=== PATIENT | male | born 1965 | race Caucasian/White ===

== ENCOUNTER → 2017-08-08 | Outpatient (CLI) | payer BC ==
[2017-08-08 11:39] LABS: ALT 77 U/L (21-72); AST 40 U/L (17-59); Alkaline Phosphatase 65 U/L (38-126); Anion Gap 10 mmol/L; Blood Urea Nitrogen 14 mg/dL (9-20); Calcium 9.1 mg/dL (8.4-10.2); Carbon Dioxide 21 mmol/L (22-30); Chloride 109 mmol/L (98-107); Cholesterol 190 mg/dL (<200); Glucose 155 mg/dL (74-99); HDL Cholesterol 36 mg/dL (40-60); Non-African American GFR(MDRD) >60 (>60 ml/min/1.73 sqM); Potassium 4.2 mmol/L (3.5-5.1); Sodium 140 mmol/L (137-145); Total Bilirubin 0.3 mg/dL (0.2-1.3); Total Protein 6.6 g/dL (6.3-8.2)
[2017-08-08 11:53] LABS: Basophils # (A) 0.1 k/uL (0-0.2); Basophils % (A) 1 %; CH 32.9; CHCM 35.3; Eosinophils # (A) 0.2 k/uL (0-0.7); Eosinophils % (A) 4 %; HCT 50.1 % (39.0-53.0); HDW 2.87; HGB 16.9 gm/dL (13.0-17.5); Luc # (Auto) 0.08; Luc % (Auto) 1; Lymphocytes # (A) 1.4 k/uL (1.0-4.8); Lymphocytes % (A) 22 %; MCH 31.6 pg (25.0-35.0); MCHC 33.7 g/dL (31.0-37.0); MCV 93.6 fL (80.0-100.0); Mean Platelet Volume 9.1; Monocytes # (A) 0.5 k/uL (0-1.0); Monocytes % (A) 8 %; Neutrophils % (A) 64 %; RBC 5.35 m/uL (4.30-5.90); RDW 14.7 % (11.5-15.5); WBC 6.2 k/uL (3.8-10.6)
== END | disposition home or self-care (01) ==
LOC: LABWHC1 10:55
PROVIDERS: ATTEND Family Medicine
DX: E11.9 Type 2 diabetes mellitus without complications (principal); E78.5 Hyperlipidemia, unspecified; E55.9 Vitamin D deficiency, unspecified
CPT/HCPCS: 36415; 80053; 80061; 82306; 83036; 84443; 85025

== ENCOUNTER → 2017-11-28 | Outpatient (CLI) | payer BC ==
--- NOTE | 2017-11-28 14:38 | XR ---
Left shoulder HISTORY: Left shoulder pain 3 views of the left shoulder No comparisons Distal acromion is somewhat downturned. Alignment, bone mineralization and joint spaces are maintaine d. No fracture or dislocation. Left lung apex as visualized is normal. IMPRESSION: No significant abnormalities evident. Shoulder MRI may be of benefit.
== END | disposition home or self-care (01) ==
LOC: RADXRMAIN 10:09
PROVIDERS: ATTEND Family Medicine
DX: M25.512 Pain in left shoulder (principal)

== ENCOUNTER → 2019-01-06 | Outpatient (CLI) | payer BC ==
--- NOTE | 2019-01-06 15:22 | CT ---
EXAMINATION TYPE: CT brain wo con DATE OF EXAM: 01/06/2019 COMPARISON: None HISTORY: c/o dizziness, memory loss, numbness, slurred speech, headaches. CT DLP: 1144 mGycm Automated exposure control for dose reduction was used. FINDINGS: Mild generalized degenerative change of the frontal lobe component. No midline shift or mass effect. No acute hemorrhage. Calvarium intact. Changes of chronic sinusitis noted. Craniocervical junction maintained. IMPRESSION: NO ACUTE PROCESS. IF THERE IS CONCERN FOR ACUTE OR RECENT ISCHEMIA CORRELATE WITH MRI.
--- NOTE | 2019-01-06 15:45 | US ---
EXAMINATION TYPE: US carotid duplex BILAT DATE OF EXAM: 01/06/2019 COMPARISON: NONE CLINICAL HISTORY: G45.9 TIA. syncope x 2 weeks ago, numbness of lips, slurred speech, hx of HTN but s tates BP has been back to normal EXAM MEASUREMENTS: RIGHT: Peak Systolic Velocity (PSV) cm/sec ----- Right CCA: 70.3 ----- Right ICA: 106.2 ----- Right ECA: 87.5 ICA/CCA ratio: 1.5 RIGHT: End Diastole cm/sec ----- Right CCA: 25.8 ----- Right ICA: 50.1 ----- Right ECA: 18.2 LEFT: Peak Systolic Velocity (PSV) cm/sec ----- Left CCA: 86.4 ----- Left ICA: 104.3 ----- Left ECA: 63.3 ICA/CCA ratio: 1.2 LEFT: End Diastole cm/sec ----- Left CCA: 27.0 ----- Left ICA: 33.1 ----- Left ECA: 15.4 VERTEBRALS (direction of flow): Right Vertebral: Antegrade Left Vertebral: Antegrade Rhythm: Normal No elevated velocities, significant stenosis or plaque. Slight bilateral wall thickening. IMPRESSION: 1. Intimal thickening with no significant hemodynamic stenosis. Criteria for Assigning % of Stenosis / Diameter reduction (Estimation based on the indirect measurements of the internal carotid artery velocities (ICA PSV). 1. Normal (no stenosis)=ICA PSV < 125 cm/s: ratio < 2.0: ICA EDV<40 cm/s. 2. Less than 50% stenosis=ICA PSV < 125 cm/s: ratio < 2.0: ICA EDV<40 cm/s. 3. 50 to 69% stenosis=ICA PSV of 125 to 230 cm/s: ration 2.0 ? 4.0: ICA EDV 40-100 cm/s. 4. Greater than 70% stenosis to near occlusion= ICA PSV > 230 cm/s: ratio > 4.0: ICA EDV > 100 cm/s. 5. Near occlusion= ICA PSV velocities may be low or undetectable: variable ratio and ICA EDV. 6. Total occlusion=unable to detect flow.
--- NOTE | 2019-01-07 12:45 | ECHOF ---
Referral Reason:G45.9 TIA MEASUREMENTS -------- HEIGHT: 172.7 cm WEIGHT: 91.6 kg BP: RVIDd: 2.8 cm (< 3.3) IVSd: 1.2 cm (0.6 - 1.1) LVIDd: 4.4 cm (3.9 - 5.3) LVPWd: 1.3 cm (0.6 - 1.1) IVSs: 1.6 cm LVIDs: 2.6 cm LVPWs: 1.6 cm LAESV Index (A-L): 13.20 ml/m Ao Diam: 3.1 cm (2.0 - 3.7) AV Cusp: 1.7 cm (1.5 - 2.6) LA Diam: 2.5 cm (2.7 - 3.8) MV EXCURSION: 22.213 mm (> 18.000) MV EF SLOPE: 148 mm/s (70 - 150) MV E Shubham: 0.95 m/s MV DecT: 185 ms MV A Shubham: 0.77 m/s MV E/A Ratio: 1.23 RAP: 5.00 mmHg RVSP: 24.65 mmHg FINDINGS -------- Sinus rhythm. This was a technically adequate study. The left ventricular size is normal. There is mild concentric left ventricular hypertrophy. Overa ll left ventricular systolic function is normal with, an EF between 55 - 60 %. The right ventricle is normal in size. Normal LA size by volume 22+/-6 ml/m2. The right atrial size is normal. The aortic valve is trileaflet, and appears structurally normal. No aortic stenosis or regurgitation. The mitral valve is normal. There is trace to mild mitral regurgitation. Trace tricuspid regurgitation present. Right ventricular systolic pressure is normal at < 35 mmHg. The right ventricular systolic pressure, as measured by Doppler, is 24.65mmHg. The pulmonic valve was not well visualized. There is no pulmonic regurgitation present. The aortic root size is normal. Normal inferior vena cava with normal inspiratory collapse consistent with estimated right atrial pre ssure of 5 mmHg. There is no pericardial effusion. CONCLUSIONS -------- 1. Sinus rhythm. 2. This was a technically adequate study. 3. The left ventricular size is normal. 4. There is mild concentric left ventricular hypertrophy. 5. Overall left ventricular systolic function is normal with, an EF between 55 - 60 %. 6. Normal LA size by volume 22+/-6 ml/m2. 7. The aortic valve is trileaflet, and appears structurally normal. No aortic stenosis or regurgitati on. 8. There is trace to mild mitral regurgitation. 9. Trace tricuspid regurgitation present. 10. Right ventricular systolic pressure is normal at < 35 mmHg. 11. The pulmonic valve was not well visualized. 12. The aortic root size is normal. 13. There is no pericardial effusion. CISTERN ROOM WORKING SUPERVISOR: Omer Britt RDCS
== END | disposition home or self-care (01) ==
LOC: RADCTMAIN 14:42
PROVIDERS: ATTEND Family Medicine
DX: I34.0 Nonrheumatic mitral (valve) insufficiency (principal); I51.7 Cardiomegaly; I87.8 Other specified disorders of veins; G45.9 Transient cerebral ischemic attack, unspecified
CPT/HCPCS: 70450; 93306; 93880

== ENCOUNTER → 2020-08-15 | Outpatient (CLI) | payer BC ==
--- NOTE | 2020-08-15 09:14 | US ---
EXAMINATION TYPE: US gallbladder DATE OF EXAM: 08/15/2020 COMPARISON: NONE CLINICAL HISTORY: 55-year-old male R10.11 Right upper quad pain. TECHNIQUE: Multiple sonographic images of the right upper quadrant are obtained. FINDINGS: EXAM MEASUREMENTS: Liver Length: 19.2 cm Gallbladder Wall: 0.2 cm CBD: 0.4 cm Right Kidney: 11.3 x 6.0 x 6.0 cm Jewel Setter notes: Large pt body habitus Pancreas: Obscured by bowel gas, and large pt body habitus Liver: Enlarged, heterogenous, difficult to penetrate. The second is a limited assessment for focal lesions. Gallbladder: Multiple probable polyps, largest= 0.8 cm/ Adenomyomatosis anterior fundal with ringdow n artifact. No abnormal distention or wall thickening. Evidence for sonographic Bardales's sign: No CBD: wnl Right Kidney: No hydronephrosis. IMPRESSION: 1. Hepatomegaly (19.2 cm) with severe hepatic steatosis. This secondarily limits assessment for focal liver lesions. 2. Suspect multiple gallbladder wall polyps measuring up to 8 mm. There is also some adenomyomatosis along the anterior fundal wall. Six-month follow-up ultrasound recommended to reassess the polyps. 3. No biliary ductal dilatation.
== END | disposition home or self-care (01) ==
LOC: RADUSWWP 08:19
PROVIDERS: ATTEND Family Medicine
DX: K76.0 Fatty (change of) liver, not elsewhere classified (principal); K82.8 Other specified diseases of gallbladder
CPT/HCPCS: 76705

== ENCOUNTER → 2020-09-14 | Outpatient (CLI) | payer BC ==
[2020-09-14 20:59] LABS: Hepatitis A Antibody IgM Non-Reactive (Non-Reactive); Hepatitis B Core IgM Non-Reactive (Non-Reactive); Hepatitis B Surface Antigen Non-Reactive (Non-Reactive); Hepatitis C IgG Antibody Non-Reactive (Non-Reactive)
== END | disposition home or self-care (01) ==
LOC: LABWHC1 11:06
PROVIDERS: ATTEND Nurse Practitioner
DX: R74.01 Elevation of levels of liver transaminase levels (principal)
CPT/HCPCS: 36415; 80074

== ENCOUNTER 2020-10-02 06:12 | Day surgery (SDC) | payer BC ==
[2020-09-27 11:07] VITALS: BMI 33.4
--- NOTE | 2020-10-02 01:01 | P.GSHP ---
History of Present Illness H&P Date: 10/02/20 CHIEF COMPLAINT: Gallstones HISTORY OF PRESENT ILLNESS: The patient is a 55-year-old male who presents with history of epigastric including right upper quadrant abdominal pain. He underwent diagnostic studies for her gallbladder. Separately the clinical picture was consistent with cholecystitis. Now he presents for surgical intervention. PAST MEDICAL HISTORY: Please see list PAST SURGICAL HISTORY: Please see list MEDICATIONS: Please see list ALLERGIES: Please see list SOCIAL HISTORY: Please see list FAMILY HISTORY: Please see list REVIEW OF ORGAN SYSTEMS: CONSTITUTIONAL: No reports of fevers or chills. HEENT: Denies any troubles with the vision or hearing. PHYSICAL EXAM: VITAL SIGNS: Afebrile vital signs stable GENERAL: Well-developed pleasant in no acute distress. HEENT: No scleral icterus. Extraocular movements grossly intact. Moist buccal mucosa. NECK: Supple without lymphadenopathy. CHEST: Unlabored respirations. Equal bilateral excursions. CARDIOVASCULAR: Regular rate regular rhythm rhythm. Distal 2+ pulses. ABDOMEN: Soft, nondistended. Tender along the epigastrium and right upper quadrant. MUSCULOSKELETAL: No clubbing, cyanosis, or edema. NEURO: Cranial nerves II to XII within normal limits. No focal or lateralizing signs. PSYCH: Alert and oriented to person, place and time. SKIN: Well-perfused good skin turgor. ASSESSMENT: 1. Epigastric and right upper quadrant abdominal pain 2. Chronic cholecystitis 3. Symptomatic gallstones. PLAN: 1. Will need a robotic cholecystectomy possible open. Benefits and risks were described. 2. Heparin for DVT prophylaxis 5000 units. 3. Antibiotic prophylaxis. Past Medical History Past Medical History: COPD, Diabetes Mellitus, Hyperlipidemia, Hypertension Additional Past Medical History / Comment(s): heart murmur History of Any Multi-Drug Resistant Organisms: None Reported Past Surgical History: Appendectomy, Orthopedic Surgery Additional Past Surgical History / Comment(s): fatty tumors removed from chest. drain boil on rt leg. lt knee surgery. postural hypotension Past Anesthesia/Blood Transfusion Reactions: Previous Problems w/ Anesthesia Additional Past Anesthesia/Blood Transfusion Reaction / Comment(s): difficulty breathing after boil lanced on leg Smoking Status: Former smoker - Past Family History Mother Family Medical History: No Reported History Medications and Allergies Home Medications Medication Instructions Recorded Confirmed Type Insulin Aspart [NovoLOG Flexpen] 0 units SQ AC-TID PRN 09/27/20 09/27/20 History Insulin Detemir (Levemir) [Levemir] 60 unit SQ 2300 09/27/20 09/27/20 History Lisinopril [Zestril] 10 mg PO DAILY 09/27/20 09/27/20 History Rosuvastatin [Crestor] 10 mg PO DAILY 09/27/20 09/27/20 History metFORMIN HCL [Glucophage] 1,000 mg PO BID 09/27/20 09/27/20 History Allergies Allergy/AdvReac Type Severity Reaction Status Date / Time No Known Allergies Allergy Verified 09/27/20 10:54
[~2020-10-02 06:12] MED LIST: ACETAMINOPHEN TAB 500 MG TAB PO STA; DEXAMETHASONE SOD PHOSPHATE 4 MG/ML 1 ML VIAL IV ONE; GABAPENTIN 300 MG CAP PO STA; HEPARIN SODIUM,PORCINE 5,000 UNIT/ML 1 ML VIAL SQ PRN; HYDROmorphone 0.5 MG/0.5 ML SYRINGE IVP PRN; INDOCYANINE GREEN 25 MG VIAL IV STA; LACTATED RINGERS 1,000 ML IV SCH; LIDOCAINE 1% (10MG/ML) FOR IV START INTRADERMA PRN; MELOXICAM 7.5 MG TAB PO STA; MIDAZOLAM 2 MG/2 ML VIAL IV PRN; ONDANSETRON 4 MG/2 ML VIAL IVP ONE; TAMSULOSIN 0.4 MG CAP.ER.24H PO STA
[2020-10-02 06:51] LABS: Glucose,Whole Blood 179 mg/dL (75-99)
[2020-10-02 06:59] LABS: Basophils # (A) 0.1 k/uL (0-0.2); Basophils % (A) 2 %; Eosinophils # (A) 0.2 k/uL (0-0.7); Eosinophils % (A) 4 %; HCT 44.7 % (39.0-53.0); HGB 15.7 gm/dL (13.0-17.5); Lymphocytes # (A) 1.3 k/uL (1.0-4.8); Lymphocytes % (A) 26 %; MCH 31.3 pg (25.0-35.0); MCHC 35.1 g/dL (31.0-37.0); MCV 89.2 fL (80.0-100.0); Mean Platelet Volume 9.5; Monocytes # (A) 0.4 k/uL (0-1.0); Monocytes % (A) 7 %; Neutrophils # (A) 2.9 k/uL (1.3-7.7); Neutrophils % (A) 59 %; Platelet Count 162 k/uL (150-450); RBC 5.01 m/uL (4.30-5.90); RDW 13.1 % (11.5-15.5); WBC 4.9 k/uL (3.8-10.6)
[2020-10-02 07:11] LABS: ALT 81 U/L (4-49); AST 55 U/L (17-59); African American GFR (CKD) >90 (>60 ml/min/1.73 sqM); Albumin 4.1 g/dL (3.5-5.0); Alkaline Phosphatase 57 U/L (38-126); Anion Gap 6 mmol/L; Blood Urea Nitrogen 18 mg/dL (9-20); Calcium 9.2 mg/dL (8.4-10.2); Carbon Dioxide 27 mmol/L (22-30); Chloride 107 mmol/L (98-107); Glucose 183 mg/dL (74-99); Non-African American GFR(CKD) >90 (>60 ml/min/1.73 sqM); Potassium 3.9 mmol/L (3.5-5.1); Sodium 140 mmol/L (137-145); Total Bilirubin 0.7 mg/dL (0.2-1.3); Total Protein 6.7 g/dL (6.3-8.2)
[2020-10-02] MEDS ORDERED: PHENYLEPHRINE-0.9% NACL SYG 1 MG/10 ML SYRINGE ONE (07:23)
[2020-10-02] MEDS ORDERED: LIDOCAINE 1% INJ 10MG/ML (20 ML MDV) ONE (07:23)
[2020-10-02] MEDS ORDERED: SUCCINYLCHOLINE CHLORIDE 100 MG/5 ML SYR IV ONE (07:23)
[2020-10-02] MEDS ORDERED: fentaNYL (PF) 50 MCG/ML 2 ML AMP ONE (07:23)
[2020-10-02] MEDS ORDERED: GLYCOPYRROLATE 0.2 MG/ML 2 ML VIAL ONE (07:23)
[2020-10-02] MEDS ORDERED: PROPOFOL 10 MG/ML 20 ML VIAL IV ONE (07:23)
[2020-10-02] MEDS ORDERED: ROCURONIUM 10 MG/ML (10 ML VIAL) IV ONE (07:23)
[2020-10-02] MEDS ORDERED: MIDAZOLAM 2 MG/2 ML VIAL ONE (07:23)
[2020-10-02] MEDS ORDERED: NEOSTIGMINE 1 MG/ML 10 ML VIAL ONE (07:23)
[2020-10-02] MEDS ORDERED: INDOCYANINE GREEN 25 MG VIAL IV ONE (07:23)
[2020-10-02] MEDS ORDERED: LIDOCAINE 1%-EPI 1:100,000 20 ML VIAL SQ ONE (07:48)
[2020-10-02] MEDS ORDERED: LACTATED RINGERS 1,000 ML IV ONE (08:22)
[2020-10-02 08:39] VITALS: RESP 16; TEMP 98.5
[2020-10-02] MEDS ORDERED: oxyCODONE-APAP 5-325MG 1 EACH TAB PO PRN (08:45)
[2020-10-02] MEDS ORDERED: KETOROLAC 15 MG/ML 1 ML VIAL IVP PRN (08:45)
--- NOTE | 2020-10-02 08:48 | P.OP ---
Date of Procedure: 10/02/20 Description of Procedure: SURGEON: CARISA ESPINOZA MD PREOPERATIVE DIAGNOSES: 1. Symptomatic gallstone 2. Right upper quadrant abdominal pain 3. Diabetes type 2, insulin-dependent 4. Hypertensive heart disease 5. Hyperlipidemia POSTOPERATIVE DIAGNOSES: 1. Symptomatic gallstone 2. Right upper quadrant abdominal pain 3. Chronic cholecystitis 4. Fatty liver disease with cirrhosis 5. Diabetes type 2, insulin-dependent 6. Hypertensive heart disease 7. Hyperlipidemia OPERATION: Robotic-assisted da Tito Xi laparoscopic cholecystectomy, multiport with FIREFLY ESTIMATED BLOOD LOSS: 10 mL. SPECIMENS REMOVED: Gallbladder. COMPLICATIONS: None. OPERATIVE FINDINGS: 1. Moderate fatty liver disease with cobblestone surface of the liver consistent with cirrhosis INDICATIONS: The patient is a 55-year-old male who presents with symptomatic gallstones. Robotic assisted laparoscopic approach was described. Benefits and risks of the procedure including but not limited to bleeding, infection, injury to the biliary tree was described. Informed consent was obtained. DESCRIPTION OF PROCEDURE: Patient was brought to the operating room, placed in supine position. After general induction, the abdomen had been prepped and draped in standard sterile fashion. The robotic da Tito XI system was primed. After a timeout protocol was performed, the patient had been prepped and draped in standard sterile fashion. The patient was injected with indocyanine green. A 5 mm 0 degrees laparoscopic trocar entry was performed along the left upper quadrant. The abdomen insufflated to 15 mmHg pressure which was tolerated well. Diagnostic laparoscopy demonstrated no injury to bowel viscera or mesentery. The liver surface was cobblestone with yellow deposits consistent with fatty liver disease and early cirrhosis. Next, two 8 mm robotic ports were placed along the right upper abdomen. The camera 8-mm port was maintained along the epigastrium. Another 8 mm port was placed along the left upper abdominal wall after exchanging the 5 mm port. Please note that the ports were placed at least 10 to 15 cm away from the target anatomy of the gallbladder. The robot was docked along the left lateral abdomen. The patient was repositioned in reverse Trendelenburg position. Using a grasper for arm 3, a grasper for arm 4, including hook cautery for arm 1, the robotic system was docked and primed as described. Instruments were interchanged by the recreational assistant including hook cautery, Bovie cautery and clip appliers. I had sat at the console. The gallbladder was scarred with peritoneal adhesions. Lysis of adhesions was performed to free the gallbladder from the surrounding tissues. Next attention was brought to the infundibulum and cystic structures. The infundibulum and cystic duct were dissected free from surrounding tissues. The cystic duct was isolated. FIREFLY was used to identify the cystic artery and cystic structures. A critical view of safety was obtained. Large PLASTIC clips were used throughout the entire case. Using a clip operator technician, 2 clips were placed at the junction of the infundibulum and cystic duct. The cystic duct was divided between clips. Next, the cystic artery was similarly clipped and cauterized. Electro-Bovie cautery was used to remove the gallbladder from the hepatic fossa. Hemostasis was checked and found to be adequate. The robot was undocked. I re-scrubbed into the case. Using a 10 mm Endo Catch bag via the left upper quadrant incision, the specimen was removed from the abdominal cavity. All pneumoperitoneum instruments were evacuated from the abdominal cavity. The incisions were reapproximated using 4-0 Monocryl in an interrupted subcuticular fashion. Fascial defects were less than 8 mm in size. Please note along the trocar sites, local anesthetic was placed as a field block prior to insertion of all instruments. Liquid glue was applied to the skin. At the end of the procedure needle, sponge, and instrument count had been verified correct by the surgical scheduler. The patient was transferred to postanesthesia care unit in stable condition. Intraoperative films were shared with the patient's family. Plan - Discharge Summary Discharge Rx Participant: Yes New Discharge Prescriptions: New Ibuprofen [Motrin] 600 mg PO Q8HR PRN #30 tab PRN Reason: Pain Acetaminophen Tab [Tylenol Tab] 1,000 mg PO Q6HR PRN #30 tablet PRN Reason: Pain Continue Lisinopril [Zestril] 10 mg PO DAILY Insulin Detemir (Levemir) [Levemir] 60 unit SQ 2300 metFORMIN HCL [Glucophage] 1,000 mg PO BID Rosuvastatin [Crestor] 10 mg PO DAILY Insulin Aspart [NovoLOG Flexpen] 0 units SQ AC-TID PRN PRN Reason: hyperglycemia Discharge Medication List Insulin Aspart [NovoLOG Flexpen] 0 units SQ AC-TID PRN 09/27/20 [History] Insulin Detemir (Levemir) [Levemir] 60 unit SQ 2300 09/27/20 [History] Lisinopril [Zestril] 10 mg PO DAILY 09/27/20 [History] Rosuvastatin [Crestor] 10 mg PO DAILY 09/27/20 [History] metFORMIN HCL [Glucophage] 1,000 mg PO BID 09/27/20 [History] Acetaminophen Tab [Tylenol Tab] 1,000 mg PO Q6HR PRN #30 tablet 10/02/20 [Rx] Ibuprofen [Motrin] 600 mg PO Q8HR PRN #30 tab 10/02/20 [Rx] Follow up Appointment(s)/Referral(s): Carisa Espinoza MD [STAFF PHYSICIAN] - 10/10/20 Patient Instructions/Handouts: Laparoscopic Cholecystectomy (DC), Non-Alcoholic Fatty Liver Disease (DC), Low Fat Diet (DC) Activity/Diet/Wound Care/Special Instructions: Recommend low-fat diet for the next 2 days. No lifting over 10 pounds in 2 weeks until Oct 16. May shower. No bath tub soaks for two weeks until Oct 16. Diet as tolerated. Use Tylenol and ibuprofen or Aleve scheduled for the next 24-48 hours for best pain relief. Use ice along incisions for the today to prevent swelling. Discharge Disposition: HOME SELF-CARE
[2020-10-02] MEDS ORDERED: SIMETHICONE 80 MG CHEWABLE PO SCH (09:00)
[2020-10-02] MEDS ORDERED: INSULIN ASPART (NovoLOG) 100 UNIT/ML VIAL SQ ONE (09:27)
[2020-10-02 09:30] LABS: Glucose,Whole Blood 241 mg/dL (75-99)
[2020-10-02 10:13] VITALS: BP 111/72; PULSE 81
== END 2020-10-02 10:58 | disposition home or self-care (01) ==
LOC: OR 06:12
PROVIDERS: ATTEND Surgery Plastic and Reconstructive Surgery
DX: K80.10 Calculus of gallbladder with chronic cholecystitis without obstruction (principal); K66.0 Peritoneal adhesions (postprocedural) (postinfection); E11.9 Type 2 diabetes mellitus without complications; I11.9 Hypertensive heart disease without heart failure; E78.5 Hyperlipidemia, unspecified; K76.0 Fatty (change of) liver, not elsewhere classified; K74.60 Unspecified cirrhosis of liver; J44.9 Chronic obstructive pulmonary disease, unspecified; E07.9 Disorder of thyroid, unspecified; R01.1 Cardiac murmur, unspecified; Z98.890 Other specified postprocedural states; I95.1 Orthostatic hypotension; Z87.891 Personal history of nicotine dependence; Z79.4 Long term (current) use of insulin; Z79.899 Other long term (current) drug therapy
CPT/HCPCS: 88304; 80053; 85025; 47563; J2250; J1644; J1100; J2710; J0690; J2405; J2001; J3010; J2370; J0330; J2704; J1170

== ENCOUNTER → 2021-01-24 | Outpatient (CLI) | payer BC | END | disposition home or self-care (01) | LOC: LABWHC1 15:46 | PROVIDERS: ATTEND Family Medicine | DX: Z20.822 Contact with and (suspected) exposure to COVID-19 (principal) | CPT/HCPCS: U0003; C9803; U0005 ==

== ENCOUNTER → 2021-02-09 | Outpatient (CLI) | payer BC | END | disposition home or self-care (01) | LOC: LABWHC1 16:10 | PROVIDERS: ATTEND Family Medicine | DX: Z20.822 Contact with and (suspected) exposure to COVID-19 (principal) | CPT/HCPCS: U0003; C9803; U0005 ==

== ENCOUNTER 2023-02-27 18:53 | Emergency (ER) | payer BC ==
[2023-02-27 19:04] VITALS: TEMP 97.8
[2023-02-27] MEDS ORDERED: SODIUM CHLORIDE 0.9% 500 ML 500 ML IV STA (19:48)
[2023-02-27 21:01] LABS: Basophils # (A) 0.1 k/uL (0-0.2); Basophils % (A) 1 %; Eosinophils # (A) 0.1 k/uL (0-0.7); Eosinophils % (A) 2 %; HCT 47.3 % (39.0-53.0); HGB 15.9 gm/dL (13.0-17.5); Lymphocytes # (A) 1.3 k/uL (1.0-4.8); Lymphocytes % (A) 21 %; MCHC 33.6 g/dL (31.0-37.0); MCV 92.3 fL (80.0-100.0); Mean Platelet Volume 10.4; Monocytes # (A) 0.5 k/uL (0-1.0); Monocytes % (A) 8 %; Neutrophils # (A) 4.2 k/uL (1.3-7.7); Neutrophils % (A) 67 %; Platelet Count 157 k/uL (150-450); RBC 5.13 m/uL (4.30-5.90); RDW 13.5 % (11.5-15.5); WBC 6.3 k/uL (3.8-10.6)
[2023-02-27 21:02] VITALS: RESP 16
[2023-02-27 21:09] LABS: Albumin 4.3 g/dL (3.5-5.0); Calcium 9.6 mg/dL (8.4-10.2); Magnesium 1.4 mg/dL (1.6-2.3); Potassium 4.4 mmol/L (3.5-5.1); Total Bilirubin 0.8 mg/dL (0.2-1.3); Total Protein 6.9 g/dL (6.3-8.2)
[2023-02-27 21:10] LABS: INR 1.1 (<1.2); Partial Thromboplastin Time 23.3 sec (22.0-30.0); Prothrombin Time 11.1 sec (9.0-12.0)
--- NOTE | 2023-02-27 21:15 | XR ---
EXAMINATION TYPE: XR chest 2V DATE OF EXAM: 02/27/2023 8:35 PM COMPARISON: Chest radiographs from 01/13/2015 TECHNIQUE: XR chest 2V Frontal and lateral views of the chest. CLINICAL INDICATION:Male, 58 years old with history of difficulty breathing; FINDINGS: Lungs/Pleura: There is no evidence of pleural effusion, focal consolidation, or pneumothorax. Pulmonary vascularity: Unremarkable. Heart/mediastinum: Cardiomediastinal silhouette is unremarkable. Musculoskeletal: No acute osseous pathology. IMPRESSION: No acute cardiopulmonary disease/process.
[2023-02-27] MEDS ORDERED: INSULIN REGULAR 100 UNIT/ML VIAL (IV) IV ONE (21:32)
[2023-02-27] MEDS ORDERED: MAGNESIUM SULFATE-D5W PMX 1 GM in DEXTROSE/WATER 1 100ML.BAG IVPB ONE (21:32)
[2023-02-27 22:50] LABS: Glucose,Whole Blood 298 mg/dL (70-110)
--- NOTE | 2023-02-27 22:51 | ED ---
General Adult HPI - General Chief complaint: Extremity Injury, Lower Stated complaint: hyperglycemia, leg weakness/pain Time Seen by Provider: 02/27/23 19:34 Source: patient Mode of arrival: ambulatory Limitations: no limitations - History of Present Illness Initial comments: Patient is a 58-year-old male with history of diabetes, hypertension, hyperlipi demia, and COPD presenting with chief complaint of bilateral leg cramping. Patient states cramping has been ongoing for about a week. He states that he recently had some bilateral lower extremity edema, this has since resolved after patient use compression stockings, elevation, and his physician started him on a diuretic. States that this bilateral burning and cramping to the lower extremities is worse with sitting and improves with standing and walking. No discoloration. No chest pain or difficulty breathing. No palpitations or weakness. Patient states that he occasionally had some left arm pain. No numbness or tingling. No abdominal pain, nausea, vomiting. No fevers or chills. - Related Data Home Medications Medication Instructions Recorded Confirmed Rosuvastatin [Crestor] 10 mg PO HS 09/27/20 02/27/23 lisinopriL [Zestril] 10 mg PO DAILY 09/27/20 02/27/23 metFORMIN HCL [Glucophage] 1,000 mg PO BID 09/27/20 02/27/23 Albuterol Sulfate [Albuterol 2 puff INHALATION RT-Q4H PRN 02/27/23 02/27/23 Sulfate Hfa] Chlorthalidone [Hygroton] 25 mg PO DAILY 02/27/23 02/27/23 Insulin Detemir [Levemir Flexpen] 60 units SQ HS 02/27/23 02/27/23 Magnesium 200 mg PO HS 02/27/23 02/27/23 Tirzepatide [Mounjaro] 5 mg SQ SA 02/27/23 02/27/23 Allergies Allergy/AdvReac Type Severity Reaction Status Date / Time No Known Allergies Allergy Verified 02/27/23 22:36 Review of Systems ROS Statement: Those systems with pertinent positive or pertinent negative responses have been documented in the HPI. ROS Other: All systems not noted in ROS Statement are negative. Past Medical History Past Medical History: COPD, Diabetes Mellitus, Hyperlipidemia, Hypertension Additional Past Medical History / Comment(s): heart murmur History of Any Multi-Drug Resistant Organisms: None Reported Past Surgical History: Appendectomy, Orthopedic Surgery Additional Past Surgical History / Comment(s): fatty tumors removed from chest. drain boil on rt leg. lt knee surgery. postural hypotension Past Anesthesia/Blood Transfusion Reactions: Previous Problems w/ Anesthesia Additional Past Anesthesia/Blood Transfusion Reaction / Comment(s): difficulty breathing after boil lanced on leg Past Psychological History: No Psychological Hx Reported Smoking Status: Former smoker Past Alcohol Use History: Occasional Past Drug Use History: None Reported - Past Family History Mother Family Medical History: No Reported History General Exam Limitations: no limitations General appearance: alert, in no apparent distress Head exam: Present: atraumatic, normocephalic, normal inspection Eye exam: Present: normal appearance, EOMI. Absent: scleral icterus, periorbital swelling Neck exam: Present: normal inspection, full ROM Respiratory exam: Present: normal lung sounds bilaterally. Absent: respiratory distress, wheezes, rales, rhonchi, stridor Cardiovascular Exam: Present: regular rate, normal rhythm, normal heart sounds. Absent: systolic murmur, diastolic murmur, rubs, gallop, clicks Extremities exam: Present: normal capillary refill. Absent: pedal edema Neurological exam: Present: alert, oriented X3, CN II-XII intact Psychiatric exam: Present: normal affect, normal mood Skin exam: Present: warm, dry, intact, normal color. Absent: rash Course Vital Signs 02/27/23 02/27/23 02/27/23 19:00 21:01 22:52 Temperature 97.8 F Pulse Rate 104 H 103 H 100 Respiratory 18 16 16 Rate Blood Pressure 130/83 134/85 123/79 O2 Sat by Pulse 96 95 98 Oximetry EKG Findings - EKG Comments: EKG Findings:: Sinus tachycardia ventricular rate 108. [place] interval 148. QRS 107. QT 3-4. QTc 388. Medical Decision Making - Medical Decision Making Was pt. sent in by a medical professional or institution (, PA, STARCH MANGLE TENDER, urgent care, hospital, or halfway...) When possible be specific @ -No Did you speak to anyone other than the patient for history (EMS, parent, family, police, friend...)? What history was obtained from this source @ -No Did you review nursing and triage notes (agree or disagree)? Why? @ -I reviewed and agree with nursing and triage notes Were old charts reviewed (outside hosp., previous admission, EMS record, old EKG, old radiological studies, urgent care reports/EKG's, halfway records)? Report findings @ -No old charts were reviewed Differential Diagnosis (chest pain, altered mental status, abdominal pain women, abdominal pain men, vaginal bleeding, weakness, fever, dyspnea, syncope, headache, dizziness, GI bleed, back pain, seizure, CVA, palpatations, mental health, musculoskeletal)? @ -Differential Musculoskeletal Muscular strain, contusion, ligament sprain, fracture, arthritis, septic arthritis, bursitis, cellulitis, muscle spasm, nerve compression, DVT, arterial occlusion, herpes zoster, electrolyte abnormality, tumor.... This is not meant to be in all inclusive list EKG interpreted by me (3pts min.). @ -As above X-rays interpreted by me (1pt min.). @ -Chest X-ray shows no acute process CT interpreted by me (1pt min.). @ -None done U/S interpreted by me (1pt. min.). @ -None done What testing was considered but not performed or refused? (CT, X-rays, U/S, labs)? Why? @ -None What meds were considered but not given or refused? Why? @ -None Did you discuss the management of the patient with other professionals (professionals i.e. , PA, [employer]ENDER, lab, RT, psych nurse, social insurance administrator, colorist photography, teacher, special officer automat, case managers)? Give summary @ -No Was smoking cessation discussed for >3mins.? @ -No Was critical care preformed (if so, how long)? @ -No Were there social determinants of health that impacted care today? How? (Homelessness, low income, unemployed, alcoholism, drug addiction, transportation, low edu. Level, literacy, decrease access to med. care, assisted, rehab)? @ -No Was there de-escalation of care discussed even if they declined (Discuss DNR or withdrawal of care, Hospice)? DNR status @ -No What co-morbidities impacted this encounter? (DM, HTN, Smoking, COPD, CAD, Cancer, CVA, ARF, Chemo, Hep., AIDS, mental health diagnosis, sleep apnea, morbid obesity)? @ -None Was patient admitted / discharged? Hospital course, mention meds given and route, prescriptions, significant lab abnormalities, going to OR and other pertinent info. @ -Discharge. Patient is a 58-year-old male presenting with chief complaint of bilateral lower extremity cramping. On physical examination he is neurovascul andrew intact, no swelling noted. Lab work shows no leukocytosis or anemia. Patient is dehydrated with sodium 129 and BUN 34. Magnesium is 1.4. Glucose is 411, patient is a diabetic and recently had a change to his medications. Troponin and BNP are negative. Chest x-ray and EKG show no acute changes. Patient is given IV magnesium and instructed to continue his magnesium supplements at home. He is given IV fluids as well as insulin. On reassessment his sugar has improved 298. He is educated on today's findings and on management at home. Follow-up with PCP. Report back to ER with any new or worsening symptoms. Discussed return parameters and answered all questions. Patient conveyed verbal understanding and agreed to the plan. I discussed this case in detail with my attending Dr. Arvizu Undiagnosed new problem with uncertain prognosis? @ -No Drug Therapy requiring intensive monitoring for toxicity (Heparin, Nitro, Insulin, Cardizem)? @ -No Were any procedures done? @ -No Diagnosis/symptom? @ -Hypomagnesmia, hyperglycemia, dehydration Acute, or Chronic, or Acute on Chronic? @ -Acute Uncomplicated (without systemic symptoms) or Complicated (systemic symptoms)? @ -Uncomplicated Side effects of treatment? @ -No Exacerbation, Progression, or Severe Exacerbation? @ -No Poses a threat to life or bodily function? How? (Chest pain, [place], [place], pneumonia, PE, COPD, DKA, ARF, appy, cholecystitis, CVA, Diverticulitis, Homicidal, Suicidal, threat to staff... and all critical care pts) @ -No - Lab Data Result diagrams: 02/27/23 20:35 02/27/23 20:35 Lab Results 02/27/23 02/27/23 02/27/23 Range/Units 20:35 20:35 20:35 WBC 6.3 (3.8-10.6) k/uL RBC 5.13 (4.30-5.90) m/uL Hgb 15.9 (13.0-17.5) gm/dL Hct 47.3 (39.0-53.0) % MCV 92.3 (80.0-100.0) fL MCH 31.0 (25.0-35.0) pg MCHC 33.6 (31.0-37.0) g/dL RDW 13.5 (11.5-15.5) % Plt Count 157 (150-450) k/uL MPV 10.4 Neutrophils % 67 % Lymphocytes % 21 % Monocytes % 8 % Eosinophils % 2 % Basophils % 1 % Neutrophils # 4.2 (1.3-7.7) k/uL Lymphocytes # 1.3 (1.0-4.8) k/uL Monocytes # 0.5 (0-1.0) k/uL Eosinophils # 0.1 (0-0.7) k/uL Basophils # 0.1 (0-0.2) k/uL PT 11.1 (9.0-12.0) sec INR 1.1 (<1.2) APTT 23.3 (22.0-30.0) sec Sodium 129 L (137-145) mmol/L Potassium 4.4 (3.5-5.1) mmol/L Chloride 91 L (98-107) mmol/L Carbon Dioxide 25 (22-30) mmol/L Anion Gap 13 mmol/L BUN 34 H (9-20) mg/dL Creatinine 1.24 (0.66-1.25) mg/dL Est GFR (CKD-EPI)AfAm 75 (>60 ml/min/1.73 sqM) Est GFR (CKD-EPI)NonAf 65 (>60 ml/min/1.73 sqM) Glucose 411 H (74-99) mg/dL POC Glucose (mg/dL) (70-110) mg/dL POC Glu Plastic Card Grader Cardroom ID Plasma Lactic Acid Kiran (0.7-2.0) mmol/L Calcium 9.6 (8.4-10.2) mg/dL Magnesium 1.4 L (1.6-2.3) mg/dL Total Bilirubin 0.8 (0.2-1.3) mg/dL AST 69 H (17-59) U/L ALT 87 H (4-49) U/L Alkaline Phosphatase 57 (38-126) U/L Troponin I (0.000-0.034) ng/mL NT-Pro-B Natriuret Pep pg/mL Total Protein 6.9 (6.3-8.2) g/dL Albumin 4.3 (3.5-5.0) g/dL 02/27/23 02/27/23 02/27/23 Range/Units 20:35 20:35 20:35 WBC (3.8-10.6) k/uL RBC (4.30-5.90) m/uL Hgb (13.0-17.5) gm/dL Hct (39.0-53.0) % MCV (80.0-100.0) fL MCH (25.0-35.0) pg MCHC (31.0-37.0) g/dL RDW (11.5-15.5) % Plt Count (150-450) k/uL MPV Neutrophils % % Lymphocytes % % Monocytes % % Eosinophils % % Basophils % % Neutrophils # (1.3-7.7) k/uL Lymphocytes # (1.0-4.8) k/uL Monocytes # (0-1.0) k/uL Eosinophils # (0-0.7) k/uL Basophils # (0-0.2) k/uL PT (9.0-12.0) sec INR (<1.2) APTT (22.0-30.0) sec Sodium (137-145) mmol/L Potassium (3.5-5.1) mmol/L Chloride (98-107) mmol/L Carbon Dioxide (22-30) mmol/L Anion Gap mmol/L BUN (9-20) mg/dL Creatinine (0.66-1.25) mg/dL Est GFR (CKD-EPI)AfAm (>60 ml/min/1.73 sqM) Est GFR (CKD-EPI)NonAf (>60 ml/min/1.73 sqM) Glucose (74-99) mg/dL POC Glucose (mg/dL) (70-110) mg/dL POC Glu Plastic Card Grader Cardroom ID Plasma Lactic Acid Kiran 1.8 (0.7-2.0) mmol/L Calcium (8.4-10.2) mg/dL Magnesium (1.6-2.3) mg/dL Total Bilirubin (0.2-1.3) mg/dL AST (17-59) U/L ALT (4-49) U/L Alkaline Phosphatase (38-126) U/L Troponin I <0.012 (0.000-0.034) ng/mL NT-Pro-B Natriuret Pep <11 pg/mL Total Protein (6.3-8.2) g/dL Albumin (3.5-5.0) g/dL 02/27/23 Range/Units 22:49 WBC (3.8-10.6) k/uL RBC (4.30-5.90) m/uL Hgb (13.0-17.5) gm/dL Hct (39.0-53.0) % MCV (80.0-100.0) fL MCH (25.0-35.0) pg MCHC (31.0-37.0) g/dL RDW (11.5-15.5) % Plt Count (150-450) k/uL MPV Neutrophils % % Lymphocytes % % Monocytes % % Eosinophils % % Basophils % % Neutrophils # (1.3-7.7) k/uL Lymphocytes # (1.0-4.8) k/uL Monocytes # (0-1.0) k/uL Eosinophils # (0-0.7) k/uL Basophils # (0-0.2) k/uL PT (9.0-12.0) sec INR (<1.2) APTT (22.0-30.0) sec Sodium (137-145) mmol/L Potassium (3.5-5.1) mmol/L Chloride (98-107) mmol/L Carbon Dioxide (22-30) mmol/L Anion Gap mmol/L BUN (9-20) mg/dL Creatinine (0.66-1.25) mg/dL Est GFR (CKD-EPI)AfAm (>60 ml/min/1.73 sqM) Est GFR (CKD-EPI)NonAf (>60 ml/min/1.73 sqM) Glucose (74-99) mg/dL POC Glucose (mg/dL) 298 H (70-110) mg/dL POC Glu Plastic Card Grader Cardroom ID Meaghan Gray Plasma Lactic Acid Kiran (0.7-2.0) mmol/L Calcium (8.4-10.2) mg/dL Magnesium (1.6-2.3) mg/dL Total Bilirubin (0.2-1.3) mg/dL AST (17-59) U/L ALT (4-49) U/L Alkaline Phosphatase (38-126) U/L Troponin I (0.000-0.034) ng/mL NT-Pro-B Natriuret Pep pg/mL Total Protein (6.3-8.2) g/dL Albumin (3.5-5.0) g/dL Disposition Clinical Impression: Dehydration, Hypomagnesemia, Hyperglycemia Disposition: HOME SELF-CARE Condition: Good Instructions (If sedation given, give patient instructions): Dehydration (ED), Hypomagnesemia (ED), Diabetic Hyperglycemia (ED) Additional Instructions: Follow-up with PCP. Report back to ER with any new or worsening symptoms. Stay well-hydrated and continue taking medications and supplements as prescribed. Is patient prescribed a controlled substance at d/c from ED?: No Referrals: Piyush Rogers MD [Primary Care Provider] - 1-2 days Time of Disposition: 22:50
[2023-02-27 22:52] VITALS: BP 123/79; PULSE 100
== END 2023-02-27 23:06 | disposition home or self-care (01) ==
LOC: EC 18:53
DX: E11.65 Type 2 diabetes mellitus with hyperglycemia (principal); E86.0 Dehydration; E83.42 Hypomagnesemia; J44.9 Chronic obstructive pulmonary disease, unspecified; E11.9 Type 2 diabetes mellitus without complications; E78.5 Hyperlipidemia, unspecified; I10 Essential (primary) hypertension; Z87.891 Personal history of nicotine dependence; Z79.899 Other long term (current) drug therapy; Z79.4 Long term (current) use of insulin; Z79.84 Long term (current) use of oral hypoglycemic drugs
CPT/HCPCS: 36415; 93005; 83880; 80053; 83605; 83735; 84484; 85025; 85610; 85730; 71046; 99285; 96365; J3475

== ENCOUNTER → 2023-05-29 | Outpatient (CLI) | payer BC ==
--- NOTE | 2023-05-29 17:51 | CA ---
Transthoracic Echo Report Name: Toñito Rivers Age: 58 Gender: M : 1965 Exam Date: 05/29/2023 14:11 Exam Location: [facility] [employer] Echo Ht (in): 68 Wt (lb): 216 Ordering Physician: Piyush Rogers MD Attending/Referring Phys: [id number], Ken Leather Piece Inspector Argenis Mathis, [facility] Procedure CPT: Indications: I10 HTN Cardiac Hx: Technical Quality: Fair Contrast 1: Total Dose (mL): Contrast 2: Total Dose (mL): MEASUREMENTS (Male / Female) Normal Values 2D ECHO LV Diastolic Diameter PLAX 5.0 cm 4.2 - 5.9 / 3.9 - 5.3 cm LV Systolic Diameter PLAX 3.4 cm IVS Diastolic Thickness 1.2 cm 0.6 - 1.0 / 0.6 - 0.9 cm LVPW Diastolic Thickness 1.3 cm 0.6 - 1.0 / 0.6 - 0.9 cm LV Relative Wall Thickness 0.5 RV Internal Dim ED PLAX 3.2 cm LA Systolic Diameter LX 4.0 cm 3.0 - 4.0 / 2.7 - 3.8 cm LV Diastolic Volume MOD 4C 101.6 cm??? LV Systolic Volume MOD 4C 44.8 cm??? LV Ejection Fraction MOD 4C 55.9 % LV Cardiac Index MOD 4C 2270.7 cm???/min???m??? LV Diastolic Length 4C 8.3 cm LV Systolic Length 4C 6.8 cm LV Diastolic Volume MOD 2C 119.0 cm??? LV Systolic Volume MOD 2C 58.6 cm??? LV Ejection Fraction MOD 2C 50.8 % LV Cardiac Index MOD 2C 2414.5 cm???/min???m??? LV Diastolic Length 2C 8.7 cm LV Systolic Length 2C 7.3 cm M-MODE Aortic Root Diameter MM 2.9 cm AV Cusp Separation MM 2.0 cm DOPPLER AV Peak Velocity 145.6 cm/s AV Peak Gradient 8.5 mmHg Mitral E Point Velocity 99.3 cm/s Mitral A Point Velocity 91.7 cm/s Mitral E to A Ratio 1.1 MV Deceleration Time 229.7 ms MV E' Velocity 9.5 cm/s Mitral E to MV E' Ratio 10.4 TR Peak Velocity 231.1 cm/s TR Peak Gradient 21.4 mmHg Right Ventricular Systolic Press 31.4 mmHg FINDINGS Left Ventricle Left ventricular ejection fraction is estimated at 55-60 %. Left ventricular cavity size normal. Normal left ventricular wall motion. Mildly increased left ventricular wall thickness. Normal left ventricular diastolic filling pattern. Right Ventricle Normal right ventricular size. Right Atrium Normal right atrial size. Left Atrium Normal left atrial size. Mitral Valve Structurally normal mitral valve. mild mitral regurgitation. Aortic Valve Trileaflet aortic valve. No aortic valve stenosis or regurgitation. Tricuspid Valve Structurally normal tricuspid valve. Mild tricuspid regurgitation. Pulmonic Valve Pulmonic valve not well visualized. Pericardium Normal pericardium. No pericardial effusion. Aorta Normal size aortic root and proximal ascending aorta. CONCLUSIONS 1. Normal left ventricular size and systolic function with mild left ventricle hypertrophy 2. Mild mitral and tricuspid regurgitation Previewed by: Dr. Elina Celis MD (Electronically Signed) Final Date: 29 May 2023 17:50
== END | disposition home or self-care (01) ==
LOC: RADECHMAIN 13:56
PROVIDERS: ATTEND Family Medicine
DX: I08.1 Rheumatic disorders of both mitral and tricuspid valves (principal); I10 Essential (primary) hypertension
CPT/HCPCS: 93306

== ENCOUNTER → 2024-05-04 | Outpatient (CLI) | payer OTHER ==
--- NOTE | 2024-05-04 15:55 | XR ---
EXAMINATION TYPE: XR chest 2V DATE OF EXAM: 05/04/2024 1:29 PM CLINICAL INDICATION:Male, 59 years old with history of J44.9 COPD; COMPARISON: 02/27/2023 TECHNIQUE: XR chest 2V Frontal view of the chest. FINDINGS: Lungs/Pleura: There is no evidence of pleural effusion, focal consolidation, or pneumothorax. Pulmonary vascularity: Unremarkable. Heart/mediastinum: Cardiomediastinal silhouette is unremarkable. Musculoskeletal: No acute osseous pathology. IMPRESSION: No acute cardiopulmonary disease/process.
--- NOTE | 2024-05-04 15:56 | XR ---
EXAMINATION TYPE: XR knee complete LT DATE OF EXAM: 05/04/2024 1:29 PM CLINICAL INDICATION:Male, 59 years old with history of M23.92 internal derangement L knee; [facility] COMPARISON: None. TECHNIQUE: XR knee complete LT; examined in Frontal, lateral and oblique projections. FINDINGS: No evidence of any acute osseous pathology, soft tissue swelling, or joint effusion is no luís. Tricompartmental osteophyte formation involving the femoral condyles, tibial plateau and patella . Mild joint space narrowing. IMPRESSION: 1. No acute osseous pathology. 2. Mild tricompartmental osteoarthritic changes.
== END | disposition home or self-care (01) ==
LOC: RADXRMAIN 13:04
PROVIDERS: ATTEND Family Medicine
DX: J44.9 Chronic obstructive pulmonary disease, unspecified (principal); M17.12 Unilateral primary osteoarthritis, left knee; M23.92 Unspecified internal derangement of left knee
CPT/HCPCS: 71046